=== PATIENT | male | born 1965 | race Caucasian/White ===

== ENCOUNTER → 2020-02-06 | Outpatient (CLI) | payer BC ==
--- NOTE | 2020-02-06 09:26 | KCIC ---
EXAM: Lumbar spine MRI without contrast. HISTORY: Pain. TECHNIQUE: Multiplanar, multisequence magnetic resonance imaging of the lumbar spine was performed without contrast. COMPARISON: None. FINDINGS: There is mild lumbar dextroscoliosis. There is grade 1 anterolisthesis of L3 on L4, measuring 3 mm. There is 2 mm retrolisthesis of L2 on L3. There is multilevel endplate remodeling. There is disc desiccation at L2-L3 and L3-L4. There is an inferior endplate Schmorl's node at L2. There is no suspicious osseous lesion or fracture. There is edema within the right L3 and L4 pedicles and adjacent facet joints, likely degenerative/inflammatory rather than due to a stress reaction. The conus terminates at T12-L1. At L1-L2, there is a disc bulge and endplate remodeling. There is mild facet arthropathy. There is no stenosis. At L2-L3, there is a disc bulge with endplate remodeling and anterior annular tear. There is mild bilateral facet arthropathy. There is mild retrolisthesis. There is mild left foraminal stenosis. At L3-L4, there is a left foraminal to extraforaminal disc protrusion superimposed on a disc bulge and endplate remodeling. There is mild bilateral facet arthropathy. There is hypertrophy of the ligamentum flavum. There is grade 1 anterolisthesis. There is mild right and moderate left foraminal stenosis with abutment of the exiting left greater than right L3 nerve roots. There is [id number] central canal stenosis. At L4-L5, there is a disc bulge and endplate remodeling. There is moderate left greater than right foraminal stenosis with abutment the exiting left L4 nerve root. There is mild central canal stenosis. At L5-S1, there is no stenosis. IMPRESSION: 1. Multilevel degenerative change involving the lumbar spine, described in detail above. This is associated with mild left foraminal stenosis at L2-L3, mild right and moderate left foraminal and mild to moderate central canal stenosis at L3-L4, and moderate left greater than right foraminal and mild central canal stenosis at L4-L5. 2. Mild multilevel listhesis. Electronically signed by: Amy Kelley MD (02/06/2020 9:23 AM) [facility]
== END ==
LOC: KCIC MRI 08:28
PROVIDERS: ATTEND Family Medicine
DX: M47.816 Spondylosis without myelopathy or radiculopathy, lumbar region (principal); M48.061 Spinal stenosis, lumbar region without neurogenic claudication
CPT/HCPCS: 72148